=== PATIENT | female | born 1940 | race Caucasian/White ===

== ENCOUNTER 2021-10-05 18:05 | Inpatient (IN) | payer MEDICARE, MEDICAID, SELFPAY ==
--- NOTE | 2021-10-05 17:56 | ECG_ITS ---
APPROVED REPORT Exam: Resting ECG HR:75 bpm ECG Measurements Heart Rate 75 AXES CO 173 P 60 QRSd 152 QRS 41 QT 439 T 62 QTc 467 Conclusion SINUS RHYTHM INDETERMINATE AXIS RIGHT BUNDLE BRANCH BLOCK [120+ ms QRS DURATION, UPRIGHT V1, 40+ ms S IN I/aVL/V4/V5/V6] ABNORMAL ECG UNCONFIRMED REPORT Electronically signed by : Barrington English MD 10/06/2021 09:24:07
[2021-10-05 17:57] VITALS: BP 106/60; PULSE 77; RESP 16; TEMP 36.2; O2SAT 92; BMI 25.6
[2021-10-05 18:19] LABS: Basophils # 0.2 K/mm3 (0-0.2); Basophils % 0.8 % (0.1-2.0); Eosinophils # 0.3 K/mm3 (0.0-0.4); Eosinophils % 1.5 % (0.1-12.0); Hematocrit 46.3 % (37.0-47.0); Hemoglobin 14.4 g/dL (12.2-16.2); Lymphocytes # 0.7 K/mm3 (0.7-4.5); Lymphocytes % 3.4 % (10-50); Mean Corpuscular HGB Conc 31.2 g/dL (31.8-35.4); Mean Corpuscular Volume 96.2 fl (81-99); Mean Platelet Volume 8.8 fl (7.4-10.4); Monocytes # 0.9 K/mm3 (0.1-1.0); Neutrophils # 19.3 K/mm3 (1.8-7.8); Neutrophils % 90.2 % (37.0-80.0); Platelet Count 304 K/mm3 (142-424); Red Blood Count 4.82 M/mm3 (4.20-5.40); Red Cell Distribution Width 14.1 % (11.5-17.5); White Blood Count 21.4 K/mm3 (4.8-10.8)
[2021-10-05 18:20] LABS: Alanine Aminotransferase 31 U/L (12-78); Albumin Level 4.4 g/dl (3.5-5.0); Albumin/Globulin Ratio 1.5 (1.1-1.8); Alkaline Phosphatase 90 U/L (38-126); Aspartate Amino Transferase 44 U/L (14-36); Blood Urea Nitrogen 24 mg/dl (7-17); Calcium 8.8 mg/dl (8.4-10.2); Carbon Dioxide 28 mmol/L (22.0-30.0); Chloride 103 mmol/L (98-107); Estimated Glomerular Filt Rate 40 ml/min (>60); GFR (African American) 48 ML/MIN (>60); Glucose 173 mg/dl (74-100); MANUAL DIFFERENTIAL MANUAL DIFFERENTIAL (MANUAL DIFF); Sodium 139 mmol/L (136-145); Total Protein,Serum 7.4 g/dl (6.3-8.2)
[2021-10-05 18:33] VITALS: BP 122/96; PULSE 75; RESP 18; O2SAT 97
[2021-10-05 18:34] LABS: Microscopic, Urine URINE MICROSCOPIC (MICROSCOPIC)
[2021-10-05 18:35] LABS: Hypochromasia 1+; Lymphocytes % 9 % (10-50); Neutrophils % 77 % (42-76); Platelet Estimate Normal; Total Cells Counted 100
[2021-10-05 18:37] LABS: Appearance,Urine CLOUDY (Clear); Bilirubin,Urine Negative (Negative); Blood, Urine TRACE-I (Negative); Color,Urine YELLOW (Yellow); Glucose,Urine (UA) Negative (Negative); Ketones,Urine Negative (Negative); Leukocyte Esterase,Urine 1+ (Negative); Nitrate,Urine Negative (Negative); PH,Urine 6.5 (5.0-8.5); Protein,Urine TRACE (Negative); Urobilinogen,Urine 0.2 EU/dl (0.2)
[2021-10-05 18:43] LABS: Bacteria,Urine 4+ /lpf; RBC,Urine Occasional #/hpf (0-3); Squamous Epithelial Cell,Urine Occasional #/hpf (0-5)
--- NOTE | 2021-10-05 19:15 | HMH.EDGENADL ---
ED Disposition Clinical Impression: UTI (urinary tract infection) Qualifiers: Urinary tract infection type: acute cystitis Hematuria presence: with hematuria Qualified Code(s): N30.01 - Acute cystitis with hematuria Sepsis Qualifiers: Sepsis type: sepsis due to unspecified organism Sepsis acute organ dysfunction status: unspecified Qualified Code(s): A41.9 - Sepsis, unspecified organism Disposition: Admitted As Inpatient Condition on Discharge: Fair Referrals: Barrington English MD [Primary Care Provider] - - Critical Care Critical Care Time: No Attestation: On 10/05/21, the high probability of a clinically significant, sudden or life threatening deterioration of the following system(s) required my full and direct attention, intervention and personal management. The time I documented below is in addition to time spent performing reported procedures but includes the following listed in this critical care notation. Medical Decision Making - Medical Records Medical records reviewed: Yes: I reviewed the patient's medical records. - Vinnie Inquiry Pt receiving controlled substance: No Vital Signs: 10/05/21 17:57 10/05/21 18:33 Temperature 97.1 F L Temperature Source Rectal Pulse Rate 75 Pulse Rate [Right Radial] 77 Respiratory Rate 16 18 Blood Pressure 122/96 H Blood Pressure [Right Arm] 106/60 L Blood Pressure Mean 103 Blood Pressure Mean [Right Arm] 75 Blood Pressure Source [Right Arm] Automatic Cuff Blood Pressure Position [Right Arm] Supine 02 Sat by Pulse Oximetry 92 L 97 Oxygen Delivery Method Room Air - Lab Data Lab Results 10/05/21 18:02: WBC 21.4 H*, RBC 4.82, Hgb 14.4, Hct 46.3, MCV 96.2, MCH 30.0, MCHC 31.2 L, RDW 14.1, Plt Count 304, MPV 8.8, Neut % (Auto) 90.2 H, Lymph % (Auto) 3.4 L, [place] % (Auto) 4.0, Eos % (Auto) 1.5, Baso % (Auto) 0.8, Neut # (Auto) 19.3 H, Lymph # (Auto) 0.7, [place] # (Auto) 0.9, Eos # (Auto) 0.3, Baso # (Auto) 0.2, Total Counted 100, Neutrophils % (Manual) 77 H, Band Neutrophils % 14.0 H, Lymphocytes % (Manual) 9 L, Platelet Estimate Normal, Hypochromasia 1+ 10/05/21 18:02: Sodium 139, Potassium 5.0, Chloride 103, Carbon Dioxide 28, Anion Gap 13.0, BUN 24 H, Creatinine 1.30 H, Estimated GFR 40 L, Est GFR ( Amer) 48 L, Glucose 173 H, Calcium 8.8, Total Bilirubin 1.0, AST 44 H, ALT 31, Alkaline Phosphatase 90, Total Protein 7.4, Albumin 4.4, Globulin 3.0, Albumin/Globulin Ratio 1.5 10/05/21 18:28: Urine Color Yellow, Urine Appearance Cloudy, Urine pH 6.5, Ur Specific [place] 1.010, Urine Protein Trace, Urine Glucose (UA) Negative, Urine Ketones Negative, Urine Blood Trace-i, Urine Nitrate Negative, Urine Bilirubin Negative, Urine Urobilinogen 0.2, Ur Leukocyte Esterase 1+ A, Urine RBC Occasional, Urine WBC 10-20, Ur Squamous Epith Cells Occasional, Urine Bacteria 4+ Result diagrams: 10/05/21 18:02 10/05/21 18:02 Orders (Tests/Meds): ED MEDICATIONS Generic Name Dose Route Start Last Admin Trade Name Freq PRN Reason Stop Dose Admin Sodium Chloride 1,000 mls @ 999 mls/hr 10/05/21 18:15 10/05/21 19:28 Sod Chlor 0.9% 1000ml Bag IV 10/05/21 19:15 999 mls/hr .Q1H1M EDGARD Administration Ceftriaxone Sodium 1 gm/ 50 mls @ 100 mls/hr 10/05/21 19:15 10/05/21 19:28 Sodium Chloride IV 10/19/21 19:14 100 mls/hr Q24H EDGARD Administration Sodium Chloride 1,500 mls @ 750 mls/hr 10/05/21 19:13 Sod Chlor 0.9% 1000ml Bag 30 ml/kg infuse over 2 hr (1500 ml) 10/05/21 21:12 IV .Q2H ONE ORDERS Category Date Time Status Diarrhea 23 Panel, PCR Stat Lab 10/05/21 18:10 Ordered Lactic Acid Stat Lab 10/05/21 20:00 Received Rapid PCR Covid and Flu A/B Stat Lab 10/05/21 19:51 Received Blood Culture Stat Micro 10/05/21 19:14 Ordered Urine Culture Stat Micro 10/05/21 18:28 Received - ECG Data Tracing #1 I reviewed this ECG and interpreted as documented below: Normal ventricular rate of 75 bpm, NM interval 173 ms, normal QTC.
[2021-10-05 20:11] LABS: Coronavirus 19, PCR Not Detected (NotDetected); Influenza A, PCR Not Detected (NotDetected); Influenza B, PCR Not Detected (NotDetected)
[2021-10-05 20:23] LABS: Lactic Acid 2.9 mmol/L (0.7-2.1)
--- NOTE | 2021-10-05 20:25 | PC.NURSE ---
patient assigned to 208.
[2021-10-05 20:41] VITALS: BP 157/67; PULSE 77; RESP 18; TEMP 36.7; O2SAT 97
--- NOTE | 2021-10-05 20:45 | PC.NURSE ---
pt arrived to floor via stretcher at this time
[2021-10-05 20:50] VITALS: BP 113/82; PULSE 82; RESP 18; TEMP 36.4; O2SAT 94; BMI 22.1
[2021-10-05 21:03] LABS: Adenovirus F 40/41, stool Not Detected (NotDetected); Astrovirus Not Detected (NotDetected); Campylobacter Not Detected (NotDetected); Clostridium Difficile A/B, PCR Not Detected (NotDetected); Cryptosporidium Not Detected (NotDetected); Cyclospora Cayetanesis Not Detected (NotDetected); Entamoeba histolytica Not Detected (NotDetected); Enteroaggregative E coli Not Detected (NotDetected); Enteropathogenic E coli Not Detected (NotDetected); Enterotoxigenic E coli Not Detected (NotDetected); Giardia lamblia Not Detected (NotDetected); Norovirus Not Detected (NotDetected); Plesimonas Shigalloides, PCR Not Detected (NotDetected); Rotavirus A Not Detected (NotDetected); Salmonella, PCR Not Detected (NotDetected); Sapovirus Not Detected (NotDetected); Shiga-like toxin E coli Not Detected (NotDetected); Shigella Enterovasive E coli Not Detected (NotDetected); Vibrio Cholerae Not Detected (NotDetected); Vibrio, PCR Not Detected (NotDetected); Yersinia Entercolitica, PCR Not Detected (NotDetected)
--- NOTE | 2021-10-05 21:07 | PC.NURSE ---
Spoke to patient guardian Allen Greco (son) regarding patient code status. Allen states he would like the DNR honored at [facility]. Second RN Theresa verified on phone with guardian. Paper work filled out and placed in chart.
--- NOTE | 2021-10-05 22:51 | PC.NURSE ---
Admission. Patient poor historian confused with dementia. Spoke to caregiver at [facility] who states patient is bed bound, alert but not oriented, and is incontinent of bowl and bladder. States patient takes pills crushed in apple sauce. Patient is on thin liquids with regular diet. Only history made aware of is dementia, hypertension, GERD, depression, and anxiety.
[2021-10-05 23:09] LABS: Reflex Lactic Add Lactic Reflex
[2021-10-06] VITALS: BP 129/72; PULSE 88; RESP 18; TEMP 36.8; O2SAT 99
[2021-10-06 00:06] LABS: Lactic Acid Follow Up (RFLX 1) 2.2 mmol/L (0.7-2.1)
[2021-10-06 01:55] LABS: Reflex Lactic (2 hrs) Add Lactic Reflex
[2021-10-06 02:32] LABS: Lactic Acid Follow up (RFLX 2) 2.3 mmol/L (0.7-2.1)
[2021-10-06 04:00] VITALS: BP 124/82; PULSE 90; RESP 18; TEMP 36.9; O2SAT 95
[2021-10-06 05:04] VITALS: BMI 21.9
--- NOTE | 2021-10-06 05:39 | PC.NURSE ---
Patient had diarrhea several times throughout shift. Reddish brown blood noted in stool.
[2021-10-06 07:25] LABS: Anion Gap 9.2 mEq/L (5-15); Basophils # 0.1 K/mm3 (0-0.2); Blood Urea Nitrogen 20 mg/dl (7-17); Calcium 7.9 mg/dl (8.4-10.2); Carbon Dioxide 26 mmol/L (22.0-30.0); Chloride 110 mmol/L (98-107); Creatinine Clearance Estimated 40 mL/min (50-200); Estimated Glomerular Filt Rate 61 ml/min (>60); GFR (African American) 73 ML/MIN (>60); Glucose 105 mg/dl (74-100); Mean Corpuscular HGB Conc 30.6 g/dL (31.8-35.4); Potassium 4.2 mmoL/L (3.5-5.1); Sodium 141 mmol/L (136-145)
[2021-10-06 07:53] LABS: Basophils % 0.7 % (0.1-2.0); Eosinophils % 0.2 % (0.1-12.0); Hematocrit 39.9 % (37.0-47.0); Lymphocytes # 1.2 K/mm3 (0.7-4.5); Lymphocytes % 7.7 % (10-50); Mean Corpuscular Hemoglobin 29.7 pg (27.0-31.2); Mean Platelet Volume 8.9 fl (7.4-10.4); Monocytes # 0.9 K/mm3 (0.1-1.0); Monocytes % 5.4 % (1.7-9.3); Neutrophils # 13.7 K/mm3 (1.8-7.8); Neutrophils % 85.9 % (37.0-80.0); Platelet Count 256 K/mm3 (142-424); Red Blood Count 4.12 M/mm3 (4.20-5.40); Red Cell Distribution Width 14.2 % (11.5-17.5); White Blood Count 15.9 K/mm3 (4.8-10.8)
[2021-10-06 08:00] VITALS: BP 121/76; PULSE 103; RESP 20; TEMP 38.7; O2SAT 95
[2021-10-06 08:00] LABS: Hemoglobin 12.2 g/dL (12.2-16.2)
[2021-10-06 08:02] LABS: MANUAL DIFFERENTIAL MANUAL DIFFERENTIAL (MANUAL DIFF)
--- NOTE | 2021-10-06 08:08 | HMH.PHAVTE ---
[facility] Pharmacy VTE Monitoring - Patient Demographics Admission date: 10/05/21 Report Date: 10/06/21 Time: 08:08 Allergies/Adverse Reactions: Patient Allergies No Known Allergies Allergy (Unverified 07/22/17 15:11) Height: 1.57 m Weight: 54.023 kg Patient Problems: Current Active Problems UTI (urinary tract infection) (Acute) Sepsis (Acute) - VTE Risk Labs: VTE Related Lab Results Hgb 12.2 g/dL (12.2-16.2) D 10/06/21 06:58 Hct 39.9 % (37.0-47.0) 10/06/21 06:58 Plt Count 256 K/mm3 (142-424) 10/06/21 06:58 BUN 20 mg/dl (7-17) H 10/06/21 06:58 Creatinine 0.90 mg/dl (0.52-1.04) D 10/06/21 06:58 Estimated Creat Clear 40 mL/min (50-200) 10/06/21 06:58 Was VTE Risk Assessment Performed: No Clinical Trial Participant: No - Prophylaxis VTE Prophylaxis Ordered?: Yes Types of VTE Prophylaxis: TEDS Knee High, Pharmacological Location of Applied Device: Bilateral Lower Extremeties Pharmacologic Type: Enoxaparin
--- NOTE | 2021-10-06 08:55 | HMH.PHAINT ---
MEDICATION RECONCILIATION COMPLETED ON PATIENT USING MAR FROM GROUP HOME. -REENA GARCIA, CANDICED
--- NOTE | 2021-10-06 09:01 | PC.NURSE ---
Patient bleeding from rectal area, Dr. English aware. No occult stool ordered. Nystatin ordered for excoriation of joel area per Dr. English.
--- NOTE | 2021-10-06 09:03 | HMH.HP ---
*Admission Date: 10/05/21 *Chief complaint: Fever and vomiting *History of present illness: 80-year-old female resident of [facility] who has suffered from Alzheimer's/vascular dementia for many, many years, and has been appropriately treated in a palliative care way with a DNR status in the group home for many years. She has essentially been nonverbal for the past couple of years. The nursing staff noted that she had some vomiting yesterday and low-grade fever. We initially treated with Phenergan at the group home and supportive care but the family wished her transferred for evaluation and she was sent to the emergency department where she was found to have evidence of sepsis, urinary tract infection and was admitted for severe sepsis treatment. This morning she is nonverbal and sleeping. [facility] History I have reviewed the patient's past medical history: Yes Medical History: Reports:: Dementia, Depression, Hyperlipidemia, Hypertension Denies:: Diabetes Mellitus Type 1, Diabetes Mellitus Type 2 *Have you ever received a pneumonia vaccine?: Yes (per group home) *Have you received a flu vaccine this season?: Yes (per group home) Other Medical History: Reports: Glaucoma - *Social History Last grade of school completed: Some college Smoking Status: Former smoker Alcohol Intake: never *Occupational Status:: retired *Travel in the last 8 weeks: None Family Hx:: Unable to obtain Review of Systems - Review of Systems Review of systems:: unable to obtain Meds Home Medications Medication Instructions Recorded Confirmed Type Acetaminophen [Pain Relief] 500 mg PO BID 10/05/21 10/05/21 History Amlodipine Besylate [Norvasc 5mg 5 mg PO DAILY 10/05/21 10/05/21 History tablet] Aspirin [Aspirin 81mg chewable 81 mg PO DAILY 10/05/21 10/05/21 History tab] Dorzolamide HCl/Timolol Maleat 1 drp OP BID 10/05/21 10/05/21 History [Dorzolamide-Timolol Eye Drops] Escitalopram Oxalate [Lexapro] 2.5 mg PO DAILY 10/05/21 10/06/21 History Famotidine [Pepcid 20mg Tablet] 20 mg PO BID 10/05/21 10/05/21 History Levothyroxine Sodium 75 mcg PO DAILY 10/05/21 10/05/21 History [Levothyroxine 75mcg (0.075mg) Tab] Memantine HCl [Memantine 10mg 10 mg PO BID 10/05/21 10/05/21 History Tablet] Potassium Chloride [Klor-Con M10] 20 meq PO DAILY 10/05/21 10/05/21 History Sennosides [Senna] 8.6 mg PO DAILY 10/05/21 10/05/21 History hydrOXYzine HCL [Hydroxyzine HCl] 25 mg PO HS 10/05/21 10/05/21 History lisinopriL [Lisinopril] 20 mg PO BID 10/05/21 10/05/21 History Allergies Allergy/AdvReac Type Severity Reaction Status Date / Time No Known Allergies Allergy Unverified 07/22/17 15:11 Exam Vital signs and Labs for Last 24 Hours: Temp Pulse Resp BP Pulse Ox 101.7 F H 103 H 20 121/76 95 10/06/21 08:00 10/06/21 08:00 10/06/21 08:00 10/06/21 08:00 10/06/21 08:00 Laboratory Results - last 24 hr 10/05/21 18:02: WBC 21.4 H*, RBC 4.82, Hgb 14.4, Hct 46.3, MCV 96.2, MCH 30.0, MCHC 31.2 L, RDW 14.1, Plt Count 304, MPV 8.8, Neut % (Auto) 90.2 H, Lymph % (Auto) 3.4 L, [place] % (Auto) 4.0, Eos % (Auto) 1.5, Baso % (Auto) 0.8, Neut # (Auto) 19.3 H, Lymph # (Auto) 0.7, [place] # (Auto) 0.9, Eos # (Auto) 0.3, Baso # (Auto) 0.2, Total Counted 100, Neutrophils % (Manual) 77 H, Band Neutrophils % 14.0 H, Lymphocytes % (Manual) 9 L, Platelet Estimate Normal, Hypochromasia 1+ 10/05/21 18:02: Sodium 139, Potassium 5.0, Chloride 103, Carbon Dioxide 28, Anion Gap 13.0, BUN 24 H, Creatinine 1.30 H, Estimated GFR 40 L, Est GFR ( Amer) 48 L, Glucose 173 H, Calcium 8.8, Total Bilirubin 1.0, AST 44 H, ALT 31, Alkaline Phosphatase 90, Total Protein 7.4, Albumin 4.4, Globulin 3.0, Albumin/Globulin Ratio 1.5 10/05/21 18:28: Urine Color Yellow, Urine Appearance Cloudy, Urine pH 6.5, Ur Specific [place] 1.010, Urine Protein Trace, Urine Glucose (UA) Negative, Urine Ketones Negative, Urine Blood Trace-i, Urine Nitrate Negat
[2021-10-06 10:30] LABS: Lymphocytes % 8 % (10-50); Monocytes % 6 % (2-9); Neutrophils % 86 % (42-76); Total Cells Counted 100
[2021-10-06 10:31] LABS: RBC Morphology Normal
[2021-10-06 10:32] LABS: Platelet Estimate Normal
[2021-10-06 11:50] VITALS: BP 118/48; PULSE 90; RESP 20; TEMP 37.8; O2SAT 94
[2021-10-06 16:00] VITALS: BP 159/60; PULSE 76; RESP 20; TEMP 37.2; O2SAT 95
[2021-10-06 20:00] VITALS: BP 129/66; PULSE 79; RESP 18; TEMP 36.8; O2SAT 97
[2021-10-07] VITALS (7 sets, daily range): BP systolic 133–155; BP diastolic 69–111; PULSE 87–108; RESP 16–20; TEMP 36.6–36.9; O2SAT 94–99; BMI 21.9
--- NOTE | 2021-10-07 06:55 | PC.NURSE ---
No acute episodes or changes this shift. Pt is mostly non-verbal. Will say ok or yes to certain questions. Pt has had 2 urine soaked depends this shift as well as 1 large loose BM. BM was mucousy - minimal blood tinge. Turning q2hrs. Pt has been afebrile this shift. Pt is taking medications well - crushed in applesauce. Call light in reach.
--- NOTE | 2021-10-07 08:32 | HMH.ACPN2 ---
Internal Medicine - PN: Subj *Date: 10/07/21 *Time: 08:32 Interval history: Patient is improved over the past 24 hours. Is talking, smiles. Significant dementia limits her communication and is unable to form meaningful sentences but this is close to her baseline. Exam Vital signs and Labs for Last 24 Hours: Temp Pulse Resp BP Pulse Ox 98.2 F 90 18 155/85 H 95 10/07/21 04:00 10/07/21 04:00 10/07/21 04:00 10/07/21 04:00 10/07/21 04:00 Laboratory Results - last 24 hr 10/06/21 06:58: Total Counted 100, Neutrophils % (Manual) 86 H, Lymphocytes % (Manual) 8 L, Monocytes % (Manual) 6, Platelet Estimate Normal, RBC Morphology Normal I & O for Last 24 hours: Intake & Output 10/04/21 10/05/21 10/06/21 10/07/21 11:59 11:59 11:59 11:59 Intake Total 180 / 180 1380 / 1380 Balance 180 / 180 1380 / 1380 Weight 119 lb 1.6 oz 119 lb 7.849 oz Microbiology Reports for the Last 24 Hours: Microbiology 10/05/21 18:28 Urine,Clean Catch Urine Culture - Final Escherichia coli Narrative: Oral mucosa clear. Lungs clear, abdomen soft, nontender, heart rate regular. Extremities warm and well-perfused. Neurologic exam notable for dementia but no focal deficits. Skin without rashes. Assessment and Plan (1) Rectal bleeding Status: Acute Category: Medical Code(s): K62.5 - Hemorrhage of anus and rectum (2) Dementia of Alzheimer's type, with early onset, with depressed mood Status: Acute Category: Medical Code(s): G30.0 - Alzheimer's disease with early onset; F32.A - Depression, unspecified; F02.80 - Dementia in other diseases classified elsewhere without behavioral disturbance (3) Sepsis Status: Acute Qualifiers: Sepsis type: sepsis due to unspecified organism Sepsis acute organ dysfunction status: unspecified Qualified Code(s): A41.9 - Sepsis, unspecified organism Category: Medical Code(s): A41.9 - Sepsis, unspecified organism (4) UTI (urinary tract infection) Status: Acute Qualifiers: Urinary tract infection type: acute cystitis Hematuria presence: with hematuria Qualified Code(s): N30.01 - Acute cystitis with hematuria Category: Medical Code(s): N39.0 - Urinary tract infection, site not specified - Assessment and plan all Dx Assessment and Plan for all problems:: Overall improving. Urine culture shows E. coli sensitive to ceftriaxone. Continue therapy. Await final report on blood culture. Probable transfer back to long-term care facility tomorrow
[2021-10-08] VITALS: BP 163/91; PULSE 94; RESP 16; TEMP 37.3; O2SAT 93
[2021-10-08 04:00] VITALS: BP 152/91; PULSE 89; RESP 16; TEMP 37.3; O2SAT 95
--- NOTE | 2021-10-08 05:22 | PC.NURSE ---
No acute episodes or changes thus far during my shift. Pt tries to talk, but does not form complete sentences. Responds occasionally to yes or no questions. Pt has slept well this shift. Pt is incontinent - redness noted to bottom and bilateral groin. Barrier cream and powder applied. Turning q2hrs. IV infusing per order. Continues to take medications in applesauce without issue. Call light in reach, bed alarm on for safety.
[2021-10-08 08:00] VITALS: BP 158/106; PULSE 105; RESP 20; TEMP 37.9; O2SAT 96
--- NOTE | 2021-10-08 08:48 | HMH.DCSUM ---
General - General Admission date:: 10/05/21 Discharge date: 10/08/21 HPI HPI: 80-year-old female resident of [facility] who has suffered from Alzheimer's/vascular dementia for many, many years, and has been appropriately treated in a palliative care way with [facility]. She has essentially been nonverbal for the past couple of years. The nursing staff noted that she had some vomiting yesterday and low-grade fever. We initially treated with Phenergan at the [facility] and supportive care but the family wished her transferred for evaluation and she was sent to the emergency department where she was found to have evidence of sepsis, urinary tract infection and was admitted for severe sepsis treatment. This morning she is nonverbal and sleeping. Hospital Course Hospital Course: Patient was admitted, placed on ceftriaxone. Did well with this, mental status improved over the next 24 hours. Urinary culture showed E. coli, greater than 100,000 colonies, sensitive to ceftriaxone. Blood cultures were negative. Vital signs, labs and other parameters of sepsis improved. She returned to her normal mental status with response to verbal and tactile stimuli. Continues to be significantly demented with no meaningful sentence formation. This morning she is back to her baseline, eating with nurse assistance. Afebrile, vital signs normalized, plan to discharge back to [facility] with Omnicef 300 twice daily for the next week. Other medications will continue. Of note, patient was reported to have some rectal bleeding on admission by nursing staff, and this was placed on her problem list by nursing staff. Given her advanced dementia, quality of life issues and DNR status I do not believe this is something that would be appropriate to work-up. Clinically the bleeding resolved and her hemoglobin remained stable. As a result, I will not consider this an active problem. She will maintain her DNR status and we will follow her up on her regular rounds at that facility. Objective Vital signs: Temp Pulse Resp BP Pulse Ox 99.1 F 89 16 152/91 H 95 10/08/21 04:00 10/08/21 04:00 10/08/21 04:00 10/08/21 04:00 10/08/21 04:00 no acute distress, chronically ill appearing - *Routine HEENT Exam Head: Present: normocephalic Eye: Present: EOMI, PERRL ENT: Present: mucous membranes moist - *Routine Neck Exam Present: supple - *Routine Respiratory Exam Present: CTA bilaterally - *Routine Cardiovascular Exam Present: RRR - *Routine Abdominal Exam Present: soft, normoactive bowel sounds. Absent: tenderness - *Routine Extremities Exam Absent: cyanosis, clubbing, edema - *Routine Skin Exam Present: warm. Absent: rash - *Routine Neurological Exam Present: altered mental status - Detailed Eye Exam Eyelids: Bilateral normal inspection Results Labs on day of discharge: Preliminary micro results at discharge 10/05/21 23:40 Blood Culture - Preliminary Blood NO GROWTH AFTER 48 HOURS 10/05/21 23:50 Blood Culture - Preliminary Blood NO GROWTH AFTER 48 HOURS DS: Diagnosis - Discharge Diagnosis (1) Rectal bleeding Status: Resolved (2) Dementia of Alzheimer's type, with early onset, with depressed mood Status: Chronic (3) Sepsis Status: Resolved (4) UTI (urinary tract infection) Status: Acute Discharge Plan - Patient Discharge Instructions ACTIVITY: Continue current activity DIET: continue same diet Patient Instructions: Urinary Tract Infection, DI for Sepsis -- Adult - Follow up Plan Disposition: [facility] Condition at discharge:: Improved Home Medications: Home Medications Medication Instructions Recorded Confirmed Type Acetaminophen [Pain Relief] 500 mg PO BID 10/05/21 10/05/21 History Amlodipine Besylate [Norvasc 5mg 5 mg PO DAILY 10/05/21 10/05/21 History tablet]
--- NOTE | 2021-10-08 09:12 | SW/DCPLANNER ---
Addendum entered by Sandy Lezama 10/08/21 09:14: Ene has stated that patient does NOT require a COVID swab prior to discharge. Original Note: This patient currently resides at [facility] and will discharge back today. I have updated Ene w/ [facility] and she has confirmed that patient is [facility] level of care.
--- NOTE | 2021-10-08 11:43 | PC.NURSE ---
Report called to Brenna armstrong [facility]. Verbalizes Understanding.
--- NOTE | 2021-10-08 12:11 | PC.NURSE ---
[facility] notified of need for transport. V/U. Report given.
--- NOTE | 2021-10-10 10:30 | CARE MANAGER ---
Contacted [facility] to follow up from hospital discharge on 10/08/21. Nurse at facility states she is taking her antibiotics and is doing fine. No questions or concerns. TODD Lockwood
== END 2021-10-08 12:45 | DRG 872 ==
LOC: ER 20:15 → 2ND 20:30
PROVIDERS: Admitting Provider Emergency Medicine; Emergency Provider Emergency Medicine; PCP Internal Medicine Adolescent Medicine; Visit Provider Internal Medicine Adolescent Medicine
DX: A41.9 Sepsis, unspecified organism (principal); N30.00 Acute cystitis without hematuria; R65.20 Severe sepsis without septic shock; Z66 Do not resuscitate; G30.9 Alzheimer's disease, unspecified; F02.80 Dementia in other diseases classified elsewhere, unspecified severity, without behavioral disturbance, psychotic disturbance, mood disturbance, and anxiety; Z51.5 Encounter for palliative care; F32.A Depression, unspecified; E78.5 Hyperlipidemia, unspecified; I10 Essential (primary) hypertension; Z87.891 Personal history of nicotine dependence; B96.20 Unspecified Escherichia coli [E. coli] as the cause of diseases classified elsewhere
CPT/HCPCS: 36415; 80048; 80053; 81001; 83605; 85007; 85025; 87040; 87086; 87088; 87186; 87507; 93005; 96365; 96367; 99285; C9803; J0696; U0003; U0005

== ENCOUNTER 2022-01-03 14:51 | Emergency (ER) | payer MEDICARE, MEDICAID, SELFPAY ==
[2022-01-03] VITALS (8 sets, daily range): BP systolic 92–143; BP diastolic 48–97; PULSE 66–85; RESP 16–20; TEMP 36.6; O2SAT 94–99; BMI 23.3
--- NOTE | 2022-01-03 14:58 | CT_ITS ---
FINAL REPORT CLINICAL HISTORY: trauma, fall, hit forehead FINDINGS: Axial images of the head were obtained without contrast. Coronal reformatted images were also obtained. This study was performed with techniques to keep radiation doses as low as reasonably achievable (ALARA). Individualized dose reduction techniques using automated exposure control or adjustment of mA and/or kV according to the patient''s size were employed. There is generalized age-appropriate atrophy. Periventricular low-attenuation areas are seen consistent with moderate chronic ischemic changes. There is no evidence of intracranial hemorrhage or mass. There is no evidence of acute infarct. There is no evidence of shift of the midline structures. No skull abnormality is seen on the bone window images. IMPRESSION: Atrophy and moderate periventricular chronic ischemic changes. No acute intracranial abnormality identified. Reviewed, Interpreted and Dictated by Myron Randhawa III, MD Transcribed by Tamara Jaime Authenticated and . [facility]
--- NOTE | 2022-01-03 14:58 | XR_ITS ---
FINAL REPORT CLINICAL HISTORY: trauma, fall, pain FINDINGS: PELVIS 2 views were obtained. There is no acute fracture or dislocation. There are mild degenerative changes of the hips. There is a probable ingested foreign body in the ascending colon. Soft tissues are unremarkable. IMPRESSION: Degenerative change with no acute bony abnormality. If symptoms persist, consider MRI or CT. Reviewed, Interpreted and Dictated by Myron Randhawa III, MD Transcribed by Talia Cochran Authenticated and [facility]
--- NOTE | 2022-01-03 14:58 | XR_ITS ---
FINAL REPORT CLINICAL HISTORY: trauma, fall, rt shoulder pain FINDINGS: RIGHT SHOULDER Two views demonstrate no acute fracture or dislocation. Mild degenerative change at the acromioclavicular and glenohumeral joints. No soft tissue abnormality is seen. IMPRESSION: No acute process. Reviewed, Interpreted and Dictated by Myron Randhawa III, MD Transcribed by Talia Cochran Authenticated and . [facility]
--- NOTE | 2022-01-03 14:58 | CT_ITS ---
FINAL REPORT TECHNIQUE: Axial CT images of the face were obtained without contrast. Coronal reformatted images were also obtained. This study was performed with techniques to keep radiation doses as low as reasonably achievable, (ALARA). Individualized dose reduction techniques using automated exposure control or adjustment of mA and/or kV according to the patient''s size were employed. CLINICAL HISTORY: fall, facial trauma to forehead FINDINGS: There are nondisplaced nasal bone fractures of uncertain age. No other fracture is identified The orbits are intact.The globes are intact. There is chronic left maxillary sinusitis with left maxillary sinus wall thickening. There is right frontal scalp hematoma. IMPRESSION: Nondisplaced nasal bone fractures of uncertain age. Right frontal scalp hematoma. Reviewed, Interpreted and Dictated by Myron Randhawa III, MD Transcribed by Tamara Jaime Authenticated and [facility]
--- NOTE | 2022-01-03 14:58 | XR_ITS ---
FINAL REPORT CLINICAL HISTORY: trauma, fall, pain FINDINGS: A single view of the chest was obtained. The heart is normal in size. There is nonspecific mediastinal widening. There is no acute pulmonary abnormality. There is no pleural effusion. There is no pneumothorax. There is no acute osseous abnormality. IMPRESSION: Nonspecific mediastinal widening. If indicated, chest CT could further evaluate. Reviewed, Interpreted and Dictated by Myron Randhawa III, MD Transcribed by Talia Cochran Authenticated and [facility]
--- NOTE | 2022-01-03 14:58 | CT_ITS ---
FINAL REPORT CLINICAL HISTORY: trauma, fall FINDINGS: Axial CT images of the cervical spine were obtained without contrast. Sagittal and coronal reformatted images were also obtained. This study was performed with techniques to keep radiation doses as low as reasonably achievable (ALARA). Individualized dose reduction techniques using automated exposure control or adjustment of mA and/or kV according to the patient's size were employed. There is no evidence of fracture or dislocation. Moderate degenerative changes are present. There is mild retrolisthesis of C3 on 4. Multilevel, mild neural foraminal narrowing is identified. There is no significant canal stenosis. IMPRESSION: Degenerative changes without acute fracture or bony abnormality. Reviewed, Interpreted and Dictated by Myron Randhawa III, MD Transcribed by Tamara Jaime Authenticated and [facility]
--- NOTE | 2022-01-03 15:08 | [facility].EDFALL ---
ED Disposition Clinical Impression: Fall Qualifiers: Encounter type: initial encounter Qualified Code(s): W19.XXXA - Unspecified fall, initial encounter Forehead laceration Qualifiers: Encounter type: initial encounter Qualified Code(s): S01.81XA - Laceration without foreign body of other part of head, initial encounter Nasal fracture Qualifiers: Encounter type: initial encounter Fracture type: closed Qualified Code(s): S02.2XXA - Fracture of nasal bones, initial encounter for closed fracture Disposition: Home, Self-Care Condition on Discharge: Good Instructions: How to Prevent Falls - Critical Care Critical Care Time: No Attestation: On , the high probability of a clinically significant, sudden or life threatening deterioration of the following system(s) required my full and direct attention, intervention and personal management. The time I documented below is in addition to time spent performing reported procedures but includes the following listed in this critical care notation. Medical Decision Making - Medical Records Medical records reviewed: Yes: I reviewed the patient's medical records. - Vinnie Inquiry Pt receiving controlled substance: No Vital Signs: 01/03/22 14:51 01/03/22 15:44 Pulse Rate [Left Radial] 85 Respiratory Rate 18 Blood Pressure 127/94 H Blood Pressure [Right Arm] 143/86 H Blood Pressure Mean [Right Arm] 105 Blood Pressure Source [Right Arm] Automatic Cuff Blood Pressure Position [Right Arm] Sitting 02 Sat by Pulse Oximetry 94 L Oxygen Delivery Method Room Air - Radiology Data #1 Image(s): Chest, Shoulder, Pelvis Image Reviewed: Yes I reviewed the patient's radiology results, Yes I reviewed the patient's radiology image, Yes I have reviewed radiologist's interpretation IMPRESSION: Nonspecific mediastinal widening. If indicated, chest CT could further evaluate.IMPRESSION: Degenerative change with no acute bony abnormality. If symptoms persist, consider MRI or CT. IMPRESSION: No acute process. - CT Data CT Scan: Head, C-Spine, Other (face) Time Received: 17:[address] Reviewed: Yes: I have reviewed the patient's CT results, I have viewed the radiologist's interpretation Findings Narrative: IMPRESSION: Atrophy and moderate periventricular chronic ischemic changes. No acute intracranial abnormality identified. IMPRESSION: Nondisplaced nasal bone fractures of uncertain age. Right frontal scalp hematoma. IMPRESSION: Degenerative changes without acute fracture or bony abnormality. - Reevaluation(s) Time: 17:42 Reevaluation #1: On reevaluation, patient is back to baseline. There is no significant intracranial abnormality. Does have a nasal bone fracture, likely secondary to this fall. We did replace her sutures. Patient was given strict wound care precautions. Patient to follow-up with PCP in 48 hours. Patient verbalized understanding. Medical Decision Narrative: 81-year-old female presented to the emergency department after an accidental fall. Patient is a large laceration with some bleeding to the head. Meets imaging criteria of the head and cervical spine. Work-up initiated. Fall HPI - General Chief Complaint: Fall Stated Complaint: fall Time Seen by Provider: 01/03/22 14:55 Mode of Arrival: EMS Limitations: No Limitations Description of Symptoms (Recalled from ER Triage Doc. by RN): per EMS pt fell out of her wheelchair at the long-term, pt has some moan when you touch the right shoulder. LAceration noted to right forehead and abrasion on nose - History of Present Illness HPI Narrative: This is a 81-year-old female with a history of dementia presenting to the emergency department after accidental fall. Patient is coming from facility. She was sitting in a wheelchair when she fell forward. She hit her head. There is a laceration of the forehead as well as the nose. There was some bleeding. Patient is alert and oriented x0 at base
--- NOTE | 2022-01-03 15:10 | PC.NURSE ---
pt to CT
--- NOTE | 2022-01-03 15:21 | PC.NURSE ---
pt in radiology
--- NOTE | 2022-01-03 16:52 | PC.NURSE ---
pt son called to check on her at this time son is speaking with ER MD on the phone at this time.
--- NOTE | 2022-01-03 17:49 | PC.NURSE ---
[facility] called for transport back to [facility]
--- NOTE | 2022-01-03 19:37 | PC.NURSE ---
attempted several times to call report to [facility] and phone just rung. EMS notified that reports was not given due to no one answering phone
== END 2022-01-03 19:39 | disposition home or self-care (01) ==
PROVIDERS: Emergency Provider Emergency Medicine; PCP Internal Medicine Adolescent Medicine
DX: S01.81XA Laceration without foreign body of other part of head, initial encounter (principal); S02.2XXA Fracture of nasal bones, initial encounter for closed fracture; W05.0XXA Fall from non-moving wheelchair, initial encounter; Y92.129 Unspecified place in nursing home as the place of occurrence of the external cause; F03.90 Unspecified dementia, unspecified severity, without behavioral disturbance, psychotic disturbance, mood disturbance, and anxiety; E78.5 Hyperlipidemia, unspecified; I10 Essential (primary) hypertension; F32.A Depression, unspecified
CPT/HCPCS: 12013; 70450; 70486; 71045; 72125; 72170; 73030; 99285